=== PATIENT | male | born 1980 | race Asian ===

== ENCOUNTER 2025-07-30 06:03 | Day surgery (SDC) | payer OTHER, SELFPAY ==
[2025-07-23 08:07] VITALS: BMI 30.2
[2025-07-30] VITALS (10 sets, daily range): BP systolic 96–147; BP diastolic 51–85; PULSE 69–101; RESP 12–20; TEMP 36.5–36.8; O2SAT 95–100
[2025-07-30] MEDS: LACTATED RINGERS 1,000 ML 42 ML IV (06:55)
[2025-07-30] MEDS: ACETAMINOPHEN 325 MG TABLET 975 MG PO (06:56)
--- NOTE | 2025-07-30 07:33 | PM.PREOP ---
Pre-operative Note COVID-19 COVID-19 status: Not tested Interval Note History & Physical reviewed/Exam performed by Physician: Yes Changes to H&P: No
--- NOTE | 2025-07-30 07:53 | SUR.OPER ---
Supine on padded OR bed, head on pillow, arms secured on padded arm boards at <90 degrees abduction, legs uncrossed, safety belt at waist, tape over blanket over lower legs.
[2025-07-30] MEDS: LIDOCAINE 1% 20 ML INJ (08:04)
--- NOTE | 2025-07-30 09:02 | P.OP_ITS ---
Operative Date/Time/Diagnoses Date of procedure: 07/30/25 Time of procedure: 07:45 Pre-op diagnosis: Phimosis Post-op diagnosis: same Procedure & Clinicians Procedure: Circumcision Same procedure(s) as scheduled: Yes Indications: 45 y/o M noted to have phimosis and he strongly desires surgical management via a circumcision. Discussed risks of the procedure to include but not limited to pain, bleeding, infection, injury to glans penis/urethra/corporal bodies, removal of too much or too little foreskin, poor cosmetic result, wound dehisce nce, decreased penile sensation, erectile dysfunction. At this time, he would strongly prefer to move forward via a circumcision. Surgeon: Renny Pedro Assisted?: No Anesthesia Type: General Operative Notes Findings: Phimosis Closure Type: not applicable Specimen(s): none sent Applied: none Estimated Blood Loss (mL): 5 Blood products transfused: none Procedure in detail: Patient was identified in the preoperative holding area and consent confirmed.? He was then brought to the operating room and placed supine on the operating room table where general anesthesia was induced.? All bony prominences were then properly padded and he was prepped and draped in the standard sterile fashion.? A surgical timeout was conducted and all members of the operating team were in agreement. Two circumferential incisions were marked on the penis using a marking pen in order to perform a circumcision.? They were both incised using a 15 blade.? Four clamps were then utilized to elevate the prepuce away from the penile shaft and the foreskin was then removed using a combination of tenotomy scissors and bovie electrocautery.? Hemostasis was then evaluated and all active bleeding was controlled using electrocautery.? A 3-0 Chromic U-stitch was then utilized to reapproximate the skin edges in the ventral midline.? A simple interrupted 3-0 Chromic stitch was utilized to reapproximate the skin edges in the dorsal midline.? The rest of the skin edges were brought together using 3-0 Chromic in a simple interrupted fashion (more than 20 stitches were thrown in total).? Attention was then turned towards the frenulum which was reapproximated using 4- 0 Chromic in a running fashion.? The penis was then re-evaluated for hemostasis, which was noted to be excellent at case end.? A penile block was then performed using a total of 20cc of 1:1 mixture of 1% Lidocaine plain and 0.25% Marcaine plain.? The wound was then dressed with Xeroform gauze and Coban.? Anesthesia was reversed, he was extubated in the OR and transferred to the PACU in stable condition for recovery. Complications: none Post-operative Condition: stable Disposition: PACU Plan for aftercare: Discharge home from PACU. Will return to clinic in 3 months for a postoperative wound check.
[2025-07-30] MEDS: ONDANSETRON 4 MG/2 ML INJ IV (09:26)
--- NOTE | 2025-07-30 10:18 | SUR.PHASEII ---
Assisted patient to the bathroom to void. Small amount of urine noted. Home with friend in stable condition.
== END 2025-07-30 10:18 | disposition home or self-care (01) ==
PROVIDERS: Referring Provider Urology; Visit Provider Urology
PROC: (CPT 54161; principal; 2025-07-30 07:45)
DX: N47.1 Phimosis (principal)
CPT/HCPCS: 54161; J0689; J1100; J2405; J2704; J3010; J7120